=== PATIENT | female | born 1960 | race Caucasian/White ===

== ENCOUNTER → 2020-07-12 | Outpatient (CLI) | payer BC | END | disposition home or self-care (01) | LOC: LABWHC1 11:42 | PROVIDERS: ATTEND Specialist | DX: D84.9 Immunodeficiency, unspecified (principal) | CPT/HCPCS: 36415; 86480 ==

== ENCOUNTER → 2023-08-30 | Outpatient (CLI) | payer BC ==
--- NOTE | 2023-08-30 08:49 | US ---
EXAMINATION TYPE: US abdomen complete DATE OF EXAM: 08/30/2023 COMPARISON: NONE CLINICAL INDICATION: Female, 62 years old with history of R10.13 MIDEPIGASTRIC PAIN; Epigastric pain, nausea TECHNIQUE: Multiple sonographic images of the abdomen are obtained. FINDINGS: EXAM MEASUREMENTS: Liver Length: 13.3 cm Gallbladder Wall: 0.2 cm CBD: 0.6 cm Spleen: 8.9 cm Right Kidney: 9.9 x 4.0 x 4.6 cm Left Kidney: 10.5 x 4.6 x 4.2 cm MANAGER SPANISH NOTES: Technical limitations due to large amount of overlying bowel content Pancreas: Obscured by bowel gas Liver: appears wnl as visualized Gallbladder: no evidence of stones Evidence for sonographic Alicia's sign: no CBD: upper limits of normal Spleen: wnl Right Kidney: no evidence of hydronephrosis Left Kidney: no evidence of hydronephrosis Upper IVC: wnl Abd Aorta: wnl The liver is homogenous. The intrahepatic portion of the IVC and proximal abdominal aorta are within normal limits. There is no evidence of cholelithiasis. Common bile duct is unremarkable. The visu alized portions of the pancreas are homogenous. The spleen is unremarkable. Kidneys are symmetric a nd free of hydronephrosis. No renal lesions are seen. IMPRESSION: No evidence for acute process.
== END | disposition home or self-care (01) ==
LOC: RADUSWWP 07:14
PROVIDERS: ATTEND Family Medicine
DX: R10.13 Epigastric pain (principal); R11.0 Nausea
CPT/HCPCS: 76700